=== PATIENT | female | born 1945 | race Caucasian/White ===

== ENCOUNTER 2021-08-07 14:35 | Outpatient (CLI) | payer MEDICARE | END 2021-08-07 23:59 | disposition home or self-care (01) | LOC: RAD 14:35 | PROVIDERS: ATTEND Internal Medicine Gastroenterology | DX: K21.9 Gastro-esophageal reflux disease without esophagitis (principal); R13.14 Dysphagia, pharyngoesophageal phase | CPT/HCPCS: 74230 ==

== ENCOUNTER 2024-01-08 08:47 | Outpatient (CLI) | payer MEDICARE, MEDICAID | END 2024-01-08 23:59 | disposition home or self-care (01) | LOC: RAD 08:47 | PROVIDERS: ATTEND General Practice | DX: R13.10 Dysphagia, unspecified (principal) | CPT/HCPCS: 74230 ==